=== PATIENT | male | born 1955 | race Caucasian/White ===

== ENCOUNTER 2024-03-31 15:33 | Inpatient (IN) | payer OTHER ==
[~2024-03-31] VITALS: Ht 182.9 cm; Wt 85.0 kg
[2024-03-31 16:42] LABS: BASOPHILS ABSOLUTE AUTO 0.05 K/mm3 (0.00-0.23); BASOPHILS PERCENT AUTO 0 % (0-2); EOSINOPHILS ABSOLUTE AUTO 0.09 K/mm3 (0.00-0.68); EOSINOPHILS PERCENT AUTO 1 % (0-6); Hematocrit 36.7 % (37.0-53.0); Hemoglobin 13.7 g/dL (13.5-17.5); IMMATURE GRAN ABSOLUTE AUTO 0.04 K/mm3 (0.00-0.10); IMMATURE GRAN PERCENT AUTO 0 % (0-1); LYMPHOCYTES ABSOLUTE AUTO 0.36 K/mm3 (0.84-5.20); LYMPHOCYTES PERCENT AUTO 3 % (21-46); MONOCYTES ABSOLUTE AUTO 0.57 K/mm3 (0.16-1.47); MONOCYTES PERCENT AUTO 5 % (4-13); Mean Corpuscular HGB 31.3 pg (26.0-34.0); Mean Corpuscular HGB Conc 37.3 g/dL (31.5-36.5); Mean Corpuscular Volume 84 fL (80-100); NEUTROPHILS ABSOLUTE AUTO 10.07 K/mm3 (1.96-9.15); NEUTROPHILS PERCENT AUTO 90 % (41-73); Platelet Count 185 K/mm3 (150-400); RDW Coefficient Variation 12.1 % (11.7-14.2); RDW Standard Deviation 36.5 fL (35.1-46.3); Red Blood Cell Count 4.38 M/mm3 (4.30-5.90); White Blood Cell Count 11.18 K/mm3 (4.00-11.30)
[2024-03-31 17:09] LABS: Alanine Aminotransfer (ALT/SGP 22 U/L (12-78); Albumin, Blood 3.6 g/dL (3.4-5.0); Albumin/Globulin Ratio 1.2 (0.8-1.8); Alk Phos 68 U/L (50-136); Anion Gap 11 mmol/L (3-11); Aspartate Aminotrans (AST/SGOT 14 U/L (12-37); Bilirubin, Total 1.4 mg/dL (0.1-1.0); Blood Urea Nitrogen 16 mg/dL (8-24); Bun/Creatinine Ratio 18.8 (12.0-20.0); CO2, Blood 22 mmol/L (21-32); Calcium, Blood 8.9 mg/dL (8.5-10.1); Chloride, Blood 105 mmol/L (98-108); Creatinine, Blood 0.85 mg/dL (0.60-1.20); Ethanol (Alcohol), Blood, Med <3 mg/dL; Glomerular Filtration Rate 93 (60-); Glucose, Blood 283 mg/dL (70-99); Potassium, Blood 4.3 mmol/L (3.5-5.5); Sodium, Blood 134 mmol/L (136-145); Total Protein, Blood 6.6 g/dL (6.4-8.2)
[2024-03-31 17:21] LABS: Influenza A, PCR NEGATIVE (NEGATIVE); Influenza B, PCR NEGATIVE (NEGATIVE); Resp Syncytial Virus, PCR NEGATIVE (NEGATIVE); SARS-Cov-2 (COVID-19) PCR, MMC NEGATIVE (NEGATIVE)
[2024-03-31] MEDS ORDERED: Lactated Ringer's 1,000 ML IV SCH (17:30)
[2024-03-31] MEDS ORDERED: Acetaminophen 500 MG Tab PO ONE (17:40)
[2024-03-31] MEDS ORDERED: CefTRIAXone Sodium 1,000 MG in NS 100 ML IV ONE (17:40)
[2024-03-31 19:47] LABS: Source, Urine Clean Catch
[2024-03-31 19:52] LABS: Appearance, Urine Clear (Clear); Bilirubin, Urine Neg (Neg); Blood, Urine Neg (Neg); Color, Urine Yellow (P-Yellow); Glucose Qualitative, Urine 4+ (Neg); Ketones, Urine Neg (Neg); Leukocyte Esterase, Urine Neg (Neg); Nitrite, Urine Neg (Neg); Protein, Urine 2+ (Neg); Urobilinogen, Urine NORM (Normal)
[2024-03-31 20:01] LABS: Red Blood Cells, Urine 0-2 /hpf (0-2); Squamous Epithelial Cells Rare /hpf (Few); White Blood Cells, Urine 0-2 /hpf (0-5)
[2024-03-31 20:02] LABS: Bacteria Few /hpf; Hyaline Casts 0-2 /lpf (0-2); Mucus Light (0-Heavy)
[2024-03-31 20:21] LABS: U Amphetamine Screen Not Detected; U Barbituate Screen Not Detected; U Benzodiazapine Screen Not Detected; U Buprenorphine Screen Not Detected; U Cannabinoids Screen Not Detected; U Cocaine Screen Not Detected; U Methadone Screen Not Detected; U Methamphetamine Screen Not Detected; U Opiates Screen Not Detected; U Oxycodone Screen Not Detected; U Phencyclidine Screen Not Detected
[2024-03-31 23:17] LABS: Adenovirus Not Detected (NOT DETECT); Coronavirus 229E Not Detected (NOT DETECT); Coronavirus HKU1 Not Detected (NOT DETECT); Coronavirus NL63 Not Detected (NOT DETECT)
[2024-03-31 23:18] LABS: Bordetella pertussis Not Detected (NOT DETECT); Chlamydophila pneumoniae Not Detected (NOT DETECT); Coronavirus OC43 Not Detected (NOT DETECT); Human Metapneumovirus Not Detected (NOT DETECT); Human Rhinovirus/Enterovirus Not Detected (NOT DETECT); Influenza A/2009-H1 Not Detected (NOT DETECT); Influenza A/H1 Not Detected (NOT DETECT); Influenza A/H3 Not Detected (NOT DETECT); Influenza B Not Detected (NOT DETECT); Mycoplasma pneumoniae Not Detected (NOT DETECT); Parainfluenza Virus 1 Not Detected (NOT DETECT); Parainfluenza Virus 2 Not Detected (NOT DETECT); Parainfluenza Virus 3 Not Detected (NOT DETECT); Parainfluenza Virus 4 Not Detected (NOT DETECT); Respiratory Syncytial Virus Not Detected (NOT DETECT); SARS-Cov-2 (COVID-19), BioFire Not Detected (NOT DETECT)
[2024-04-01] MEDS ORDERED: Acetaminophen 325 MG TABLET PO PRN (00:15)
[2024-04-01] MEDS ORDERED: NS 1,000 ML IV SCH ×2 (00:20→11:25)
[2024-04-01] MEDS ORDERED: FLU VACC TS2024-25(6MOS UP)/PF 45 MCG/0.5 ML SYRINGE IM SCH (00:20)
[2024-04-01] MEDS ORDERED: Ondansetron HCl 2 MG / ML 2ML Vial IV PRN (00:20)
[2024-04-01 00:47] VITALS: BP 172/84
[2024-04-01] MEDS ORDERED: GABA300 (03:54)
[2024-04-01] MEDS ORDERED: METF500 PO (03:54)
[2024-04-01] MEDS ORDERED: SEMGLEE (Y100 UNIT/2 (03:56)
[2024-04-01] MEDS ORDERED: GLIP10 (03:57)
[2024-04-01 05:06] VITALS: BP 126/72
--- NOTE | 2024-04-01 05:08 | NUR ---
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 USED TRANSFER SHEET. PT ABLE TO ANSWER ORIENTATION QUESTIONS; HOWEVER PT PRESENTS FORGETFUL AND OVERESTIMATES ABILITY. PT DOES NOT SEEM TO UNDERSTAND HIS LIMITATIONS RELATED TO THIS NEW ONSET WEAKNESS. PT SLIGHTLY IMPULSIVE AND ATTEMPTING AT TIME TO DO TASKS HE IS TOO WEAK TO DO. ORIENTED PT TO ROOM AND CALL LIGHT. EDUCATED ON RISK FOR FALLS AND INSTRUCTED PT ON FALL PREVENTION. PUT BED ALARM IN PLACE DUE TO FALL RISK. EDUCATED ON IGNITION SOURCES--PT DENIES. PT HX OF DMT2; PT MANAGES WITH ORAL MEDS AND INSULIN. PT HAS CONT GLUCOSE MONITOR. COMPLETED [facility] SKIN ASSESSMENT WITH SECOND [employer] GR[employer]ER. SKIN INTACT. PT CONTINUES TO HAVE FEVER T/O THE NIGHT. MED WITH TYLENOL. PT DOES HAVE HX OF DENTAL CARIES AND POOR DENTITION BUT DENIES PAIN OR SWELLING OF MOUTH. PT ON TELE--NORMAL SINUS AT 85.
[2024-04-01 06:31] LABS: Albumin, Blood 3.2 g/dL (3.4-5.0); Albumin/Globulin Ratio 1.2 (0.8-1.8); Bilirubin, Total 1.6 mg/dL (0.1-1.0); Bun/Creatinine Ratio 17.9 (12.0-20.0); Calcium, Blood 8.9 mg/dL (8.5-10.1); Creatinine, Blood 0.78 mg/dL (0.60-1.20); Globulin, Blood 2.6 g/dL (2.2-4.0); Potassium, Blood 3.8 mmol/L (3.5-5.5); Total Protein, Blood 5.8 g/dL (6.4-8.2)
[2024-04-01] MEDS ORDERED: Insulin Human Lispro 100 Units/ML 3ML Syringe SC SCH (07:30)
[2024-04-01 07:40] LABS: BASOPHILS ABSOLUTE AUTO 0.03 K/mm3 (0.00-0.23); BASOPHILS PERCENT AUTO 1 % (0-2); EOSINOPHILS ABSOLUTE AUTO 0.08 K/mm3 (0.00-0.68); EOSINOPHILS PERCENT AUTO 1 % (0-6); Hematocrit 32.4 % (37.0-53.0); IMMATURE GRAN ABSOLUTE AUTO 0.02 K/mm3 (0.00-0.10); IMMATURE GRAN PERCENT AUTO 0 % (0-1); LYMPHOCYTES ABSOLUTE AUTO 0.38 K/mm3 (0.84-5.20); LYMPHOCYTES PERCENT AUTO 6 % (21-46); MONOCYTES ABSOLUTE AUTO 0.55 K/mm3 (0.16-1.47); MONOCYTES PERCENT AUTO 9 % (4-13); Mean Corpuscular Volume 82 fL (80-100); Mean Platelet Volume 9.1 fL (9.1-12.4); NEUTROPHILS ABSOLUTE AUTO 5.17 K/mm3 (1.96-9.15); NEUTROPHILS PERCENT AUTO 83 % (41-73); Platelet Count 167 K/mm3 (150-400); RDW Coefficient Variation 12.2 % (11.7-14.2); RDW Standard Deviation 36.6 fL (35.1-46.3); Red Blood Cell Count 3.94 M/mm3 (4.30-5.90); White Blood Cell Count 6.23 K/mm3 (4.00-11.30)
[2024-04-01 07:42] VITALS: BP 134/80
[2024-04-01] MEDS ORDERED: Gabapentin 300 MG Cap PO SCH (09:00)
[2024-04-01] MEDS ORDERED: Enoxaparin 40 MG/0.4 ML SYR SC SCH (09:00)
--- NOTE | 2024-04-01 11:46 | NUR ---
[id number] PT DECLINES LOVENEX.EDUCATED PATIENT ON WHY LOVENEX HAS BEEN ORDERED WHILE HE IS HOSPITALIZED TO HELP DECREASE THE POSSIBILITY OF BLOOD CLOT FORMATION
--- NOTE | 2024-04-01 14:17 | NUR ---
1100 RN SAW PT HAD TAKEN A MED AND FOUND AFTER HE SWALLOWED IT. HIS WAS THERE WITH ALL HIS HOME MEDS. THEY WERE CONCERNED HE HAD NOT RECEIVED HIS METFORMIN OR GLIPIZIDE. RN EXPLAINED THAT DR WOULD SEE IF SHE WANTED TO RESTART THIS MED YET. PT TOOK HIS HOME MED BEFORE ASKING STAFF. RN NOTIFIED DR CUEVAS AT 1100 WHEN SHE WAS AT THE BEDSIDE. AND RN ALSO EXPLAINED WE COULDNT USE PT'S DEXCOM FOR BLOOD SUGAR CHECKS, AND THAT SS HUMALOG WOULD BE USED TO HELP KEEP BETTER CONTROL ON SUGARS. PT FINALLY ALLOWED STAFF TO CHECK SUGARS AND USE INSULIN FOR COVERAGE.
[2024-04-01 15:19] VITALS: BP 136/103
[2024-04-01] MEDS ORDERED: CefTRIAXone Sodium 1,000 MG in NS 100 ML IV SCH (18:00)
--- NOTE | 2024-04-01 18:35 | NUR ---
Pt was admitted last night d/t altered mental status, fever, and weakness. IV antibiotics administered with IV fluid. Pt back to baseline A&Ox4, afebrile and able to ambulate to bathroom and follows commands. at bedside throughout the day. Pt took home meds (glipizide, and metformin,)RN educated pt on the importance of only taking medications provided from hospital. Pt agreed to follow plan of care and has been cooperative since. IV antibiotics continued, lactic acid in normal range today, blood glucose in 200s, insulin coverage per sliding scale. Pt able to make need known, call light in reach, bed in low locked position.
[2024-04-01 20:48] VITALS: BP 153/102
[2024-04-01] MEDS ORDERED: Insulin Glargine-Yfgn 100 Unit/mL 3 ML SYR SC SCH (21:00)
[2024-04-02 02:34] VITALS: BP 147/87
[2024-04-02 05:10] LABS: BASOPHILS ABSOLUTE AUTO 0.03 K/mm3 (0.00-0.23); BASOPHILS PERCENT AUTO 1 % (0-2); EOSINOPHILS ABSOLUTE AUTO 0.29 K/mm3 (0.00-0.68); EOSINOPHILS PERCENT AUTO 7 % (0-6); Hemoglobin 12.3 g/dL (13.5-17.5); IMMATURE GRAN ABSOLUTE AUTO 0.01 K/mm3 (0.00-0.10); IMMATURE GRAN PERCENT AUTO 0 % (0-1); LYMPHOCYTES ABSOLUTE AUTO 0.54 K/mm3 (0.84-5.20); LYMPHOCYTES PERCENT AUTO 12 % (21-46); MONOCYTES ABSOLUTE AUTO 0.65 K/mm3 (0.16-1.47); MONOCYTES PERCENT AUTO 15 % (4-13); Mean Corpuscular HGB 31.1 pg (26.0-34.0); Mean Corpuscular HGB Conc 37.3 g/dL (31.5-36.5); Mean Corpuscular Volume 84 fL (80-100); Mean Platelet Volume 8.9 fL (9.1-12.4); NEUTROPHILS ABSOLUTE AUTO 2.94 K/mm3 (1.96-9.15); NEUTROPHILS PERCENT AUTO 66 % (41-73); Platelet Count 154 K/mm3 (150-400); RDW Coefficient Variation 12.3 % (11.7-14.2); RDW Standard Deviation 37.1 fL (35.1-46.3); Red Blood Cell Count 3.95 M/mm3 (4.30-5.90); White Blood Cell Count 4.46 K/mm3 (4.00-11.30)
[2024-04-02 05:35] LABS: Calcium, Blood 8.7 mg/dL (8.5-10.1); Creatinine, Blood 0.82 mg/dL (0.60-1.20)
--- NOTE | 2024-04-02 06:27 | NUR ---
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 PT A/OX4. ABLE TO MAKE NEEDS KNOWN. PT ON TELE--NORMAL SINUS. PT EDUCATED ON NOT TAKING HOME MEDICATIONS WHILE IN PATIENT AT [facility]. PT VERBALIZED UNDERSTANDING. AT BEDSIDE AT START OF SHIFT AND LEFT HOME MEDS WITH THE PATIENT. PATIENT DENIED TAKING HOME MEDS. CALL LIGHT IN REACH. BED ALARM IN PLACE. PT HAS BEEN SBA TO BATHROOM.
[2024-04-02 08:06] VITALS: BP 143/73
[2024-04-02] MEDS ORDERED: CEPH500 PO (11:03)
[2024-04-02] MEDS ORDERED: VISBIOME 112.51 EACH PO (11:04)
--- NOTE | 2024-04-02 12:34 | NUR ---
DISCHARGE PT DISCHARGED HOME WITH , PRESCRIPTIONS FAXED TO [facility]. EDUCATION PROVIDED AND ALL BELONGINGS WITH PT.
== END 2024-04-02 12:05 | disposition home or self-care (01) | DRG 872 ==
LOC: ER 15:33 → MEDS 15:34 → ER 22:21 → MEDS 04-01 00:35 → ENPENDDIS 04-02 10:36 → MEDS 04-02 12:05
PROVIDERS: Family Medicine; Nurse Practitioner Acute Care; Student in an Organized Health Care Education/Training Program; ADMIT Internal Medicine
DX: A41.9 Sepsis, unspecified organism (principal); E87.20 Acidosis, unspecified; Q25.1 Coarctation of aorta; R65.20 Severe sepsis without septic shock; I10 Essential (primary) hypertension; M19.90 Unspecified osteoarthritis, unspecified site; M79.2 Neuralgia and neuritis, unspecified; M77.8 Other enthesopathies, not elsewhere classified; E86.0 Dehydration; E11.65 Type 2 diabetes mellitus with hyperglycemia; Z79.84 Long term (current) use of oral hypoglycemic drugs; Z88.0 Allergy status to penicillin
CPT/HCPCS: 0202U; 0241U; 36415; 70450; 71045; 80048; 80053; 80320; 81001; 82947; 83605; 83880; 84145; 84443; 85025; 87040; 93005; 93010; 96361; 96365; 99285-25; A9270; G0378; J0696; J1815; J7030; J7120